=== PATIENT | male | born 1955 | race Caucasian/White ===

== ENCOUNTER 2016-08-24 12:36 | Day surgery (SDC) | payer OTHER ==
[2016-08-24] MEDS ORDERED: ceFAZolin 1 GM in NORMAL SALINE MINI-BAG+ 100 ML IV ONE ×3 (12:54→15:27)
[2016-08-24 13:19] LABS: HEMATOCRIT 47.9 % (42.0-54.0); HEMOGLOBIN 16.4 g/dL (14.0-18.0); MEAN CELL VOLUME 87.9 fL (80.0-100.0); MEAN CORPUS. HGB CONCENTRATION 34.3 g/dL (32.0-36.0); MEAN CORPUSCULAR HEMOGLOBIN 30.2 pg (29.0-35.0); MEAN PLATELET VOLUME 7.5 fL (7.4-10.4); RED BLOOD COUNT 5.45 X 10^6uL (4.20-6.10); RED CELL DISTRIBUTION WIDTH 11.9 % (11.5-14.5); WHITE BLOOD COUNT 5.5 X 10^3uL (3.9-10.7)
[2016-08-24] MEDS ORDERED: ceFAZolin 1 GM/10 ML VIAL ONE (13:33)
[2016-08-24] MEDS ORDERED: FAMOTIDINE IN SALINE, ISO-OSM 50 ML IV ONE (13:33)
[2016-08-24] MEDS ORDERED: ACETAMINOPHEN 1,000 MG/100 ML VIAL IV ONE (13:33)
[2016-08-24] MEDS ORDERED: BUPIVACAINE/EPI 0.25% 1 VIAL VIAL ONE (13:56)
[2016-08-24] MEDS ORDERED: LIDOCAINE HCL 1% 20 ML VIAL SUBCUT ONE (14:04)
[2016-08-24] MEDS ORDERED: MIDAZOLAM HCL 2 MG/2 ML SYR IV ONE (14:04)
[2016-08-24] MEDS ORDERED: METOCLOPRAMIDE HCL 10 MG/2 ML VIAL IV PRN ×2 (14:12→15:27)
[2016-08-24] MEDS ORDERED: SCOPOLAMINE 1.5 MG PATCH TOPICAL ONE (14:13)
[2016-08-24] MEDS ORDERED: FAMOTIDINE IN SALINE, ISO-OSM 20 MG/50 ML PIGGYBACK IV SCH ×2 (14:15→15:27)
[2016-08-24] MEDS ORDERED: MIDAZOLAM HCL 2 MG/2 ML VIAL ONE (14:36)
[2016-08-24] MEDS ORDERED: LACTATED RINGERS 1,000 ML IV SCH ×3 (15:00→16:00)
[2016-08-24] MEDS ORDERED: ONDANSETRON HCL 4 MG/2 ML VIAL ONE (15:04)
[2016-08-24] MEDS ORDERED: DEXAMETHASONE 4 MG/ML VIAL ONE (15:04)
[2016-08-24] MEDS ORDERED: FENTANYL 100 MCG/2 ML VIAL ONE ×2 (15:05→17:16)
[2016-08-24] MEDS ORDERED: ONDANSETRON HCL 4 MG/2 ML VIAL IV PRN (15:27)
[2016-08-24] MEDS ORDERED: MORPHINE SULFATE 10 MG/ML SYR IV PRN (15:27)
[2016-08-24] MEDS ORDERED: HYDROmorphone HCL 1 MG/ML SYR IV PRN (15:27)
[2016-08-24] MEDS ORDERED: BUPIVACAINE/EPI 0.5% 50 ML VIAL INFILTRAT ONE (16:28)
[2016-08-24 17:02] VITALS: RESP 16; TEMP 97.9
[2016-08-24] MEDS: FENTANYL 100 MCG/2 ML VIAL IV PRN ×2 (17:06→17:20)
[2016-08-24 17:16] VITALS: O2SAT 92
[2016-08-24 17:21] VITALS: PULSE 50
[2016-08-24 17:30] VITALS: BP 126/93
--- NOTE | 2016-08-25 03:41 | OPERATIVE REPORT ---
DATE OF SURGERY: 08/24/16 SURGEON: Archie Marino MD PREOPERATIVE DIAGNOSIS: Left distal biceps tendon rupture. POSTOPERATIVE DIAGNOSIS: Left distal biceps tendon rupture. PROCEDURE PERFORMED: Left distal biceps tendon repair. IMPLANTS USED: Arthrex biceps button and augmentation with a tenodesis screw. INDICATIONS FOR PROCEDURE: The patient is a 61-year-old male who injured his left nondominant upper extremity while skiing, sustaining a rupture of his left distal biceps tendon. Due to the clearly unstable nature of the injury, he was taken to the operating room for distal biceps tendon repair. DESCRIPTION OF PROCEDURE: After informed consent was obtained, the patient was taken to the operating room where he placed in the supine position under general anesthesia. After adequate anesthesia was achieved, the left hand and upper extremity were prepped and draped in the usual sterile fashion, the limb was gently exsanguinated, and a tourniquet was inflated about the proximal arm to 250 mmHg. A transverse incision was then performed just distal to the elbow flexion crease. The underlying soft tissue was gently but sharply dissected down to the fascia which was very gently incised. The lateral antebrachial cutaneous nerve was identified and retracted laterally. The skin was then lifted and we were able to identify the distal end of the biceps tendon proximal to the incision site. This was retrieved using an Allis clamp, and then the degenerative portions of the tendon were sharply debrided. The distal tendon was then measured at 7 mm. The radial tuberosity was then exposed, and once adequate visualization was obtained the biceps button drill was drilled through the radial tuberosity and out the posterior cortex. The proper position of the pin was verified under C-arm fluoroscopy, and then it was over drilled using the 7 mm acorn reamer. The distal biceps tendon was secured using FiberLoop suture making multiple passes, and then the sutures were passed through the biceps button. The button was then passed through the entry hole and out the posterior cortex and then seated. C-arm fluoroscopy was again used to confirm complete seating of the button. The elbow was then flexed and the sutures were toggled in order to draw the tendon down into the drill hole. Once that was completed, one limb of the tendon was passed through a tenodesis screw which was then driven into the hole to augment fixation. The 2 loops of the suture were then tied over the tenodesis screw. The elbow was moved through a range of motion and the repair was noted to be quite stable. The wound was then irrigated with copious amounts of sterile saline, and the subcutaneous tissue was closed with 2-0 Vicryl in an interrupted fashion. The skin was then closed with 4-0 nylon in a running fashion. A sterile gauze dressing was then applied and the patient was placed into a well padded posterior splint. He tolerated the procedure well and was taken to the recovery room in stable condition. ESTIMATED BLOOD LOSS: Minimal. FLUIDS: Lactated Ringers 1500 mL. TOURNIQUET TIME: 68 minutes. MTDD
--- NOTE | 2016-08-27 14:59 | PREOPERATIVE H&P ---
History of Present Illness (Archie Marino MD; 08/20/2016 11:56 AM) The patient is a 61 year old male. Chief complaint: Left biceps injury. History of present illness: The patient is a 61-year-old male who was cross[place] skiing 1 week ago, when he got his left pole caught behind him, pulling on his left nondominant arm. He felt sensation of a pull in his anterior elbow , and later noted development of deformity of his biceps muscle belly. He reports that at this time he is not having very much pain. Allergies (Susie Baker RN; 08/20/2016 11:33 AM) No Known Allergies Family History (Susie Baker RN; 08/20/2016 11:33 AM) Cerebrovascular Disease Father Negative Family History of CAD, DM, Thyroid Cancer (not otherwise specified) Cerv or uterine (Mother), Liver (Brother) Breast Cancer Mother Social History (Susie Baker RN; 08/20/2016 11:33 AM) Tobacco use Never smoker. Alcohol use Moderate alcohol use. Moderate alcohol use, 1/night (wine or beer) Medication History (Susie Baker RN; 08/20/2016 11:33 AM) Mobic (15MG Tablet, 1 Oral daily, as needed, Taken starting 07/11/2015) Active. (Take with food) Medications Reconciled Vitals (Susie Baker RN; 08/20/2016 11:33 AM) 08/20/2016 11:32 AM Weight: 182.1 lb Height: 71in Body Surface Area: 2.03 m Body Mass Index: 25.4 kg/m Temp.: 98.2F Pulse: 60 (Regular) Resp.: 16 (Unlabored) BP: 116/70 (Sitting, Left Arm, Standard) Physical Exam (Archie Marino MD; 08/20/2016 11:54 AM) General Well-appearing male, in no apparent distress, alert and oriented 3. Musculoskeletal Physical examination of the left upper extremity reveals that he does have Retraction of the biceps muscle belly. He is only minimally tender to palpation distal to the muscle belly, and does not have a firmly palpable biceps tendon in the antecubital fossa. He has very good strength with elbow flexion against resistance, but weakness in supination with the elbow in a flexed position. He is otherwise neurovascularly intact. Assessment & Plan (Archie Marino MD; 08/20/2016 11:55 AM) Rupture of left distal biceps tendon (S46.212A) Current Plans MRI Left Elbow W/O DYE ([id number]) Assessment: Left biceps injury, with a likely distal biceps tendon evulsion. Plan: We discussed the evaluation and treatment of this injury, and we will obtain an MRI in order to better visualize the location and extent of his injury. We will have him follow up with us after the MRI, and then plan on scheduling him for repair. Signed by Archie Marino MD (08/20/2016 11:57 AM) [facility]
== END 2016-08-24 17:43 | disposition home or self-care (01) ==
LOC: SDS 12:36
PROVIDERS: ATTEND Orthopaedic Surgery
DX: S46.212A Strain of muscle, fascia and tendon of other parts of biceps, left arm, initial encounter (principal); W00.2XXA Other fall from one level to another due to ice and snow, initial encounter
CPT/HCPCS: 76000; 85027; J0690; J2250; J2405; J2765; S0020